=== PATIENT | female | born 1980 | race American Indian/Alaskan Native ===

== ENCOUNTER 2019-01-25 18:38 | Emergency (ER) | payer SELFPAY ==
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
[2019-01-25 19:16] VITALS: BP 117/66
[2019-01-25] MEDS ORDERED: IBUPROFEN PO ONE (20:03)
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
[2019-01-25] MEDS ORDERED: THERMAZENE 50 GRAM TP ONE (20:12)
--- NOTE | 2019-01-25 20:32 | XRay Report ---
PROCEDURE: XR WRIST 3+V RT TECHNIQUE: Right wrist, 4 views HISTORY: PAIN COMPARISONS: None available FINDINGS: No fracture or dislocation is seen. No focal osseous lesions. No radiopaque foreign body. Joint space s are preserved. No osteophytes. IMPRESSION: No fracture or dislocation is identified. This document is electronically signed by Eva Conn MD., January 25 2019 08:30:13 PM ET
== END 2019-01-25 22:15 | disposition home or self-care (01) ==
LOC: ED 18:38
DX: S60.211A Contusion of right wrist, initial encounter (principal); V89.2XXA Person injured in unspecified motor-vehicle accident, traffic, initial encounter; Y93.89 Activity, other specified; Y92.488 Other paved roadways as the place of occurrence of the external cause; Y99.8 Other external cause status
CPT/HCPCS: 99283

== ENCOUNTER 2019-02-06 15:50 | Emergency (ER) | payer OTHER ==
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
--- NOTE | 2019-02-06 20:09 | Emergency Department Report ---
ED General Adult HPI - General Chief complaint: Earache Stated complaint: EARACHE Time Seen by Provider: 02/06/19 16:00 Source: patient Mode of arrival: Ambulatory Limitations: No Limitations - History of Present Illness Initial comments: Patient is a 38-year-old -[place] female with no past medical history presents to the ED with complaint of acute onset persistent severe left ear pain for the last 2 weeks. Patient states that there is a lot of Eurax buildup in the left ear and that has decreased her hearing. Patient denies dizziness, tracey sea, vomiting, chest pain, shortness of breath, sore throat, nasal and sinus congestion, headache, fever and chills or traumatic injury. MD Complaint: left ear pain -: Sudden, week(s) (2) Location: face (left ear) Radiation: non-radiation Severity scale (0 -10): 6 Quality: aching, sharp Consistency: intermittent Improves with: none Worsens with: none Associated Symptoms: denies other symptoms. denies: confusion, chest pain, cough, diaphoresis, fever/chills, headaches, malaise, nausea/vomiting, seizure, shortness of breath, syncope, weakness Treatments Prior to Arrival: none - Related Data Home Medications Medication Instructions Recorded Confirmed Last Taken Biotin [Biotin 1] 01/25/19 01/25/19 Previous Rx's Medication Instructions Recorded Last Taken Type Ibuprofen [Motrin] 600 mg PO Q8H PRN #60 tablet 10/11/14 Unknown Rx Cyclobenzaprine [Flexeril] 10 mg PO TID PRN #10 tablet 01/25/19 Unknown Rx Naproxen [Naprosyn] 500 mg PO BID PRN #20 tablet 01/25/19 Unknown Rx predniSONE [Deltasone] 20 mg PO DAILY #5 tablet 01/25/19 Unknown Rx Amoxicillin/Potassium Clav 1 each PO Q12H #20 tablet 02/06/19 Unknown Rx [Augmentin 875-125 Tablet] Ibuprofen [Motrin] 600 mg PO Q8H PRN #20 tablet 02/06/19 Unknown Rx Allergies Allergy/AdvReac Type Severity Reaction Status Date / Time No Known Allergies Allergy Verified 10/11/14 01:04 ED Review of Systems ROS: Stated complaint: EARACHE Other details as noted in HPI Constitutional: denies: chills, fever Eyes: denies: eye pain, eye discharge, vision change ENT: ear pain (left), other (left ear pain, cerumen impaction). denies: throat pain Respiratory: denies: cough, shortness of breath, wheezing Cardiovascular: denies: chest pain, palpitations Endocrine: no symptoms reported Gastrointestinal: denies: abdominal pain, nausea, diarrhea Genitourinary: denies: urgency, dysuria, discharge Musculoskeletal: denies: back pain, joint swelling, arthralgia Skin: denies: rash, lesions Neurological: denies: headache, weakness, paresthesias Psychiatric: denies: anxiety, depression Hematological/Lymphatic: denies: easy bleeding, easy bruising ED Past Medical Hx - Past Medical History Previous Medical History?: Yes Additional medical history: Vaginal delivery x 3 - Surgical History Past Surgical History?: Yes Additional Surgical History: Tubaligation 2004 - Social History Smoking Status: Never Smoker Substance Use Type: Other - Medications Home Medications: Home Medications Medication Instructions Recorded Confirmed Last Taken Type Ibuprofen [Motrin] 600 mg PO Q8H PRN #60 tablet 10/11/14 Unknown Rx Biotin [Biotin 1] 01/25/19 01/25/19 History Cyclobenzaprine [Flexeril] 10 mg PO TID PRN #10 tablet 01/25/19 Unknown Rx Naproxen [Naprosyn] 500 mg PO BID PRN #20 tablet 01/25/19 Unknown Rx predniSONE [Deltasone] 20 mg PO DAILY #5 tablet 01/25/19 Unknown Rx Amoxicillin/Potassium Clav 1 each PO Q12H #20 tablet 02/06/19 Unknown Rx [Augmentin 875-125 Tablet] Ibuprofen [Motrin] 600 mg PO Q8H PRN #20 tablet 02/06/19 Unknown Rx ED Physical Exam - General Limitations: No Limitations General appearance: alert, in no apparent distress - Head Head exam: Present: atraumatic, normocephalic, normal inspection - Eye Eye exam: Present: normal appearance, PERRL, EOMI. Absent: scleral icterus, conjunctival injection, nystagmus Pupils: Present: normal accommodation - ENT ENT exam: Present: normal orophraynx, mucous membranes moist, other (erythematous bulging tympanic membrane, cerumen impaction) - Neck Neck exam: Present: normal inspection, full ROM. Absent: tenderness, lymphadenopathy - Respiratory Respiratory exam: Present: normal lung sounds bilaterally. Absent: respiratory distress, wheezes, rales, stridor, chest wall tenderness, accessory muscle use, decreased breath sounds - Cardiovascular Cardiovascular Exam: Present: regular rate, normal rhythm, normal heart sounds. Absent: systolic murmur, diastolic murmur, rubs, gallop - GI/Abdominal GI/Abdominal exam: Present: soft, normal bowel sounds. Absent: tenderness, guarding, rebound, hyperactive bowel sounds, hypoactive bowel sounds, organomegaly, bruit - Rectal Rectal exam: Present: deferred - Extremities Exam Extremities exam: Present: normal inspection, full ROM, normal capillary refill - Back Exam Back exam: Present: normal inspection, full ROM. Absent: CVA tenderness (L), paraspinal tenderness, vertebral tenderness - Neurological Exam Neurological exam: Present: alert, oriented X3, CN II-XII intact, normal gait, reflexes normal - Psychiatric Psychiatric exam: Present: normal affect, normal mood - Skin Skin exam: Present: warm, dry, intact, normal color. Absent: rash ED Course Vital Signs 02/06/19 15:52 Temperature 99.6 F Pulse Rate 93 H Respiratory 18 Rate Blood Pressure 109/56 O2 Sat by Pulse 98 Oximetry - Reevaluation(s) Reevaluation #1: 02/06/19 20:09 Patient is alert and oriented 3 and is not in any distress with normal vital signs. Patient was discharged home on medications because of the physical exam findings. Patient is advised to follow-up with her primary care physician in 7- 10 days for reevaluation or return to the ED immediately if symptoms get worse. ED Medical Decision Making - Medical Decision Making Patient is alert and oriented 3 and is not in any distress with normal vital signs. Patient was discharged home on medications because of the physical exam findings. Patient is advised to follow-up with her primary care physician in 7- 10 days for reevaluation or return to the ED immediately if symptoms get worse. - Differential Diagnosis otitis media with effusion; acute cerumen impaction Critical care attestation.: If time is entered above; I have spent that time in minutes in the direct care of this critically ill patient, excluding procedure time. ED Disposition Clinical Impression: Acute otitis media with effusion of left ear, Impacted cerumen of left ear Disposition: TO HOME OR SELFCARE Is pt being admited?: No Does the pt Need Aspirin: No Condition: Stable Instructions: Otitis Media (ED), Cerumen Impaction (ED) Additional Instructions: Take medications with food, drink plenty of fluids and follow up with your primary care physician in 7-10 days for reevaluation. Return to the ED immediately if symptoms get worse. Prescriptions: Amoxicillin/Potassium Clav [Augmentin 875-125 Tablet] 1 each PO Q12H #20 tablet Ibuprofen [Motrin] 600 mg PO Q8H PRN #20 tablet PRN Reason: Pain Referrals: [facility] [Outside] - 3-5 Days Time of Disposition: 20:11 Print Language: SWAZI
[2019-02-06 20:56] VITALS: BP 119/74
== END 2019-02-06 20:55 | disposition home or self-care (01) ==
LOC: ED 15:50
DX: H65.192 Other acute nonsuppurative otitis media, left ear (principal); H61.22 Impacted cerumen, left ear; Z98.51 Tubal ligation status; Z79.899 Other long term (current) drug therapy
CPT/HCPCS: 99282